=== PATIENT | female | born 1985 | race Two or more races ===

== ENCOUNTER 2017-08-29 23:07 | Emergency (ER) | payer SELFPAY ==
[~2017-08-29] VITALS: Ht 162.6 cm; Wt 65.0 kg
[~2017-08-29 23:07] MED LIST: MACR100C PO
[2017-08-29 23:08] VITALS: BP 135/85; PULSE 102; RESP 16; TEMP 99; O2SAT 98
[2017-08-29] MEDS ORDERED: PRED-503 PO (23:31)
[2017-08-29] MEDS ORDERED: ALBU6.7H INH (23:31)
--- NOTE | 2017-08-29 23:36 | PD ---
HPI Chief Complaint: Cold / Flu Symptoms Time Seen by Provider: 23:16 Travel History International Travel<30 days: No Contact w/Intl Traveler<30days: No Traveled to known affect area: No History of Present Illness HPI 32-year-old female presents to emergency department with a five-day history of cough and congestion. She states that she had a fever the first 2 days but that resolved. She has been taking ampicillin that she had at home and has not had improvement. She states that she feels that she needs something different because she still has cough and congestion. She does have some yellowish green sputum. Patient does state that she feels short of breath. Family history of asthma although she does not have a history of asthma. No ear pain, nausea, vomiting, diarrhea, abdominal pain or urinary symptoms. Symptoms are moderate. Worse with cough. No alleviating factor. PFSH Past Medical History Medical History: Denies Significant Hx Tetanus Vaccination: < 5 Years ?: Not Past Surgical History Surgical History: No Previous Surgery Social History Alcohol Use: No Tobacco Use: No Substance Use: No Allergies-Medications (Allergen,Severity, Reaction): Coded Allergies: No Known Allergies (Verified Adverse Reaction, Unknown, 08/29/17) Reported Meds & Prescriptions Reported Meds & Active Scripts Active Proventil Hfa 6.7 GM Inh (Albuterol Sulfate) 90 Mcg/Act Aer 2 Puff INH Q4-6H PRN Deltasone (Prednisone) 20 Mg Tab 20 Mg PO BID 5 Days Macrobid (Nitrofurantoin Macrocrystals) 100 Mg Cap 100 Mg PO BID Review of Systems General / Constitutional: Positive: Fever Eyes: No: Visual changes HENT: Positive: Sore Throat, Congestion, No: Headaches Cardiovascular: No: Chest Pain or Discomfort Respiratory: Positive: Cough, Shortness of Breath, Wheezing Gastrointestinal: No: Abdominal Pain Genitourinary: No: Dysuria Musculoskeletal: No: Pain Skin: No Rash Neurologic: No: Weakness Psychiatric: No: Depression Endocrine: No: Polydipsia Hematologic/Lymphatic: No: Easy Bruising Physical Exam Narrative GENERAL: Well-developed, well-nourished in no acute distress. Nontoxic appearing. HEAD: Normocephalic, atraumatic. EYES: Pupils equal round and reactive. Extraocular motions intact. No scleral icterus. No injection or drainage. ENT: TMs clear without erythema. The external auditory canals clear. Nose: clear . Posterior pharynx is pink and moist. No tonsillar edema or exudate. Uvula midline. Airway patent. NECK: Trachea midline.Supple, nontender, moves head freely. No central bony tenderness or spasm. CARDIOVASCULAR: Regular rate and rhythm without murmurs, gallops, or rubs. RESPIRATORY: Clear to auscultation. Breath sounds equal bilaterally. No wheezes , rales, or rhonchi. GASTROINTESTINAL: Abdomen soft, non-tender, nondistended. No hepato-splenomegaly , or palpable masses. No guarding. EXTREMITIES: No clubbing, cyanosis, or edema. No joint tenderness, effusion, or edema noted. BACK: Nontender without deformity or crepitance. No flank tenderness. Data Data Last Documented VS Vital Signs Date Time Temp Pulse Resp B/P (MAP) Pulse Ox O2 Delivery O2 Flow Rate FiO2 08/29/17 23:08 99.0 102 16 135/85 (102) 98 Room Air Orders Orders Ed Discharge Order (08/29/17 23:32) MDM Medical Decision Making Medical Screen Exam Complete: Yes Emergency Medical Condition: Yes Medical Record Reviewed: Yes Differential Diagnosis MDM: High Differential diagnoses: Pneumonia, bronchitis, URI, asthma, RAD, legionnaire's disease, SARS, ARDS, influenza, bronchiolitis, RSV,PE,CHF Narrative Course This is bronchitis with RAD Diagnosis Primary Impression: bronchitis with RAD Patient Instructions: General Instructions Additional Instructions: Rest. Increase fluids. Tylenol and Advil. Robitussin-DM. Deltasone and albuterol. Followup with a medical doctor in one week. Return to the ER for any problems. Med/Other Pt SpecificInfo: Prescription(s) given Scripts Albuterol 6.7 GM Inh (Proventil Hfa 6.7 GM Inh) 90 Mcg/Act Aer 2 PUFF INH Q4-6H Y for SHORTNESS OF BREATH, #1 INHALER 0 Refills Prov: Saskia Mesa DO 08/29/17 Prednisone (Deltasone) 20 Mg Tab 20 MG PO BID for 5 Days, #10 TAB 0 Refills Prov: Saskia Mesa DO 08/29/17 Disposition: 01 DISCHARGE HOME Condition: Stable Fritz Smith Aug 29, 2017 23:36
[2017-08-29] MEDS ORDERED: AMOX500C PO (23:43)
== END 2017-08-29 23:50 | disposition home or self-care (01) ==
LOC: NEPD 23:07
DX: J45.909 Unspecified asthma, uncomplicated (principal)
CPT/HCPCS: 99284